=== PATIENT | male | born 1950 | race Caucasian/White ===

== ENCOUNTER 2018-02-17 02:40 | Observation (INO) | payer OTHER ==
[~2018-02-17] VITALS: Ht 175.3 cm; Wt 80.4 kg
[~2018-02-17 02:40] MED LIST: HYDROCHLOROTHIA25 MG PO; LISINOPRIL10 MG PO; LO-DOSE ASPIRIN81 M1 PO; LOPRESSOR50 MG PO; METOPROLOL TAR100 MG PO; PRADAXA150 MG PO; ZESTRIL20 MG PO
[2018-02-17 03:02] LABS: HEMATOCRIT 43.3 % (38.0-50.0); HEMOGLOBIN 14.3 G/DL (12.5-16.6); MCH 29.7 PG (29.0-34.0); MCV 89.8 FL (86-99); PLATELET COUNT 191 K/uL (156-360); RBC DIS.WIDTH-CV 14.3 % (11.8-14.6); RBC DIS.WIDTH-SD 46.5 % (39-53); RED BLOOD COUNT 4.82 M/uL (4.00-5.50); WHITE BLOOD COUNT 9.2 K/uL (4.1-10.2)
[2018-02-17 03:12] LABS: CHLORIDE 108 mEq/L (99-109); POTASSIUM 4.2 mEq/L (3.7-5.4); SODIUM 142 mEq/L (136-147)
[2018-02-17 03:13] LABS: GLUCOSE 114 mg/dL (70-99)
[2018-02-17 03:17] LABS: CREATININE 1.3 mg/dL (0.6-1.3); GFR ESTIMATE (CALCULATED) 59 mL/min/ (58.99-99999)
[2018-02-17 03:18] LABS: UREA NITROGEN (BUN) 20 mg/dL (9-23)
[2018-02-17 03:28] LABS: TROP-I INTERPRETATION NEGATIVE; TROPONIN-I 0.02 ng/mL (0.0-0.30)
[2018-02-17 05:50] LABS: ALBUMIN 4.2 g/dL (3.2-4.8)
[2018-02-17 05:53] LABS: TOTAL PROTEIN 7.1 g/dL (6.4-8.3)
[2018-02-17 05:55] LABS: TOTAL BILIRUBIN 0.4 mg/dL (0.0-1.0)
[2018-02-17 05:56] LABS: ALKALINE PHOSPHATASE 94 IU/L (3-129)
[2018-02-17 05:58] LABS: AST (GOT) 17 IU/L (2-34); DIRECT BILIRUBIN 0.2 mg/dL (0.0-0.3)
[2018-02-17 05:59] LABS: ALT (GPT) 17 IU/L (3-49); LIPASE 18 U/L (1.0-51.0)
[2018-02-17] MEDS ORDERED: ELIQUIS5 MG PO (06:04)
[2018-02-17] MEDS ORDERED: CARDIZEM CD120 MG PO (06:04)
[2018-02-17] MEDS ORDERED: NORVASC10 MG PO (06:06)
[2018-02-17] MEDS ORDERED: ATORVASTATIN CA80 MG PO (06:07)
[2018-02-17] MEDS ORDERED: CALTRATE PLUS1 EACH PO (06:08)
[2018-02-17] MEDS ORDERED: FUROSEMIDE20 MG PO (06:09)
[2018-02-17] MEDS ORDERED: POTASSIUM CHLO20 ME1 PO (06:09)
[2018-02-17 08:24] LABS: INTER. NORMALIZED RATIO 1.2
[2018-02-17 08:26] LABS: PTT 32.7 SEC (25-37)
[2018-02-17 10:00] VITALS: BP 171/11
[2018-02-17 10:29] LABS: TROP-I INTERPRETATION NEGATIVE; TROPONIN-I 0.02 ng/mL (0.0-0.30)
[2018-02-17 12:49] LABS: MAGNESIUM 2.5 mg/dL (1.3-2.7)
[2018-02-17 15:20] VITALS: BP 141/86
[2018-02-17 15:42] LABS: TROP-I INTERPRETATION NEGATIVE; TROPONIN-I 0.01 ng/mL (0.0-0.30)
[2018-02-18 00:15] VITALS: BP 143/81
[2018-02-18 03:26] VITALS: BP 143/87
[2018-02-18 05:52] LABS: HEMOGLOBIN 13.1 G/DL (12.5-16.6); MCHC 32.8 G/DL (30.0-36.0); MCV 88.5 FL (86-99); PLATELET COUNT 217 K/uL (156-360); RBC DIS.WIDTH-CV 14.3 % (11.8-14.6); RBC DIS.WIDTH-SD 45.3 % (39-53); RED BLOOD COUNT 4.52 M/uL (4.00-5.50); WHITE BLOOD COUNT 8.3 K/uL (4.1-10.2)
[2018-02-18 06:21] LABS: CHLORIDE 104 MEQ/L (99-109); CREATININE 1.4 MG/DL (0.6-1.3); GFR ESTIMATE (CALCULATED) 54 mL/min/ (58.99-99999); GLUCOSE 93 mg/dL (70-99); POTASSIUM 4.1 MEQ/L (3.7-5.4); SODIUM 140 MEQ/L (136-147); UREA NITROGEN (BUN) 21 mg/dL (9-23)
[2018-02-18 06:55] VITALS: BP 157/100
[2018-02-18] MEDS ORDERED: FOLIC ACID1 MG PO (10:15)
[2018-02-18] MEDS ORDERED: FUROSEMIDE20 MG PO (10:15)
[2018-02-18] MEDS ORDERED: NICOTINE PATCH1 EAC1 TD (10:15)
[2018-02-18] MEDS ORDERED: THERAGRAN1 TABLET PO (10:15)
[2018-02-18] MEDS ORDERED: Thiamine,Vitamin B1 PO (10:15)
[2018-02-18] MEDS ORDERED: LOPRESSOR100 M1 PO (10:15)
[2018-02-18] MEDS ORDERED: COZAAR25 MG PO (10:31)
[2018-02-18 11:39] VITALS: BP 118/67
== END 2018-02-18 12:19 | disposition home or self-care (01) ==
LOC: EME 02:40 → EDOF 08:50 → ENRESERV 08:58 → EDOF 09:19 → 4SOUTH 09:46
PROVIDERS: Emergency Medicine; Physician Assistant Medical
DX: R07.9 Chest pain, unspecified (principal); I48.2 Chronic atrial fibrillation; R06.02 Shortness of breath; I16.0 Hypertensive urgency; I10 Essential (primary) hypertension; I25.10 Atherosclerotic heart disease of native coronary artery without angina pectoris; Z91.14 Patient's other noncompliance with medication regimen; Z95.5 Presence of coronary angioplasty implant and graft; E78.5 Hyperlipidemia, unspecified; F17.200 Nicotine dependence, unspecified, uncomplicated; H54.61 Unqualified visual loss, right eye, normal vision left eye; Z79.01 Long term (current) use of anticoagulants; R05 Cough; F10.10 Alcohol abuse, uncomplicated; Z79.82 Long term (current) use of aspirin; Z82.49 Family history of ischemic heart disease and other diseases of the circulatory system; Z82.3 Family history of stroke
CPT/HCPCS: 71046; 80048; 80076; 83690; 83735; 83880; 84484; 85027; 85379; 85610; 85730; 93005; 99281; 99285; G0378; J1940